=== PATIENT | male | born 1965 | race Caucasian/White ===

== ENCOUNTER → 2017-04-14 | Outpatient (CLI) | payer BC ==
--- NOTE | 2017-04-14 14:38 | XR ---
EXAMINATION TYPE: XR lumbar spine 2 or 3V DATE OF EXAM: 04/14/2017 CLINICAL HISTORY: pain TECHNIQUE: Three views of the lumbar spine are submitted. COMPARISON: None. FINDINGS: There are 5 lumbar type vertebral bodies identified. Severe degenerative disc space narrowing at L4-5 and L5-S1. Grade 1 anterolisthesis L5 on S1 measuring 9 mm. Bilateral spondylolysis at L5. Remaining levels are unremarkable. No bony destructive lesion is identified within the [id number]. IMPRESSION: 1. Anterolisthesis L5 on S1 with bilateral spondylolysis.
== END | disposition home or self-care (01) ==
LOC: RADXRMAIN 13:38
PROVIDERS: ATTEND Family Medicine
DX: M43.06 Spondylolysis, lumbar region (principal)
CPT/HCPCS: 72100

== ENCOUNTER → 2017-06-28 | Outpatient (CLI) | payer BC | END | disposition home or self-care (01) | LOC: RADMRIMAIN 05:56 | PROVIDERS: ATTEND Physician Assistant | DX: Z53.9 Procedure and treatment not carried out, unspecified reason (principal) ==

== ENCOUNTER → 2019-11-04 | Outpatient (CLI) | payer OTHER, BC ==
--- NOTE | 2019-11-04 14:41 | CT ---
EXAMINATION TYPE: CT pelvis w con DATE OF EXAM: 11/04/2019 COMPARISON: NONE HISTORY: 54-year-old male Pelvic pain TECHNIQUE: Contiguous axial scanning of the pelvis following administration of 100 ml Isovue 300 IV c ontrast. Delayed images through the bladder and coronal/sagittal reconstructions performed. CT DLP: 1586 mGycm Automated exposure control for dose reduction was used. FINDINGS: There is low attenuation of the visualized liver suggesting fatty infiltration. Moderate-sized fatty indirect inguinal hernias. There is a fatty lesion involving the superficial aspect of the left iliopsoas which crosses anterior to the left hip. This measures up to 12.4 cm craniocaudal by 5.1 cm wide by 4.0 cm AP. Some strandin g internal densities are present. No suspicious nodularity. Normal appendix. Scattered small retroperitoneal lymph nodes. No lymphadenopathy by CT size criteria. Mild circumferential bladder wall thickening. Pelvic phleboliths. Mild proximal sigmoid diverticular change. Small bilateral scrotal hydroceles. Bones: Mild degenerative change in both hips and SI joints. There are bilateral L5 pars defects with grade 1, nearly grade 2 anterolisthesis at L5-S1 and moderate degenerative disc disease L4-L5 and L5- S1. IMPRESSION: 1. MODERATE-SIZED FAT-CONTAINING BILATERAL INDIRECT INGUINAL HERNIAS. 2. A FAT DENSITY LESION INVOLVING THE SUPERFICIAL ASPECT OF THE LEFT ILIOPSOAS WHICH CROSSES ANTERIOR TO THE LEFT HIP MEASURING 12.4 X 5.1 X 4.0 CM. FINDINGS MAY REPRESENT AN INTRAMUSCULAR LIPOMA. THIS SHOULD BE FOLLOWED CLINICALLY. GIVEN SIZE, ATYPICAL LIPOMATOUS TUMOR OR LOW-GRADE LIPOSARCOMA ARE IN THE DIFFERENTIAL. IMAGING CAN BE REPEATED IF ANY ENLARGING PALPABLE ABNORMALITY IS DETECTED. 3. MILD CIRCUMFERENTIAL BLADDER WALL THICKENING. CORRELATE TO EXCLUDE CYSTITIS. 4. MILD PROXIMAL SIGMOID DIVERTICULOSIS. 5. MODERATE DEGENERATIVE DISC DISEASE L4-L5 AND L5-S1 WITH BILATERAL L5 PARS DEFECTS AND GRADE 1, RAJWINDER RLY GRADE 2 ANTEROLISTHESIS AT L5-S1.
== END | disposition home or self-care (01) ==
LOC: RADCTMAIN 10:44
PROVIDERS: ATTEND Surgery
DX: K40.20 Bilateral inguinal hernia, without obstruction or gangrene, not specified as recurrent (principal); K57.30 Diverticulosis of large intestine without perforation or abscess without bleeding; N32.89 Other specified disorders of bladder
CPT/HCPCS: 72193; Q9967

== ENCOUNTER → 2019-11-11 | Outpatient (CLI) | payer SELFPAY ==
[2019-11-11 11:46] LABS: HCT 41.9 % (39.0-53.0); HGB 13.6 gm/dL (13.0-17.5); MCH 27.4 pg (25.0-35.0); MCHC 32.6 g/dL (31.0-37.0); MCV 84.1 fL (80.0-100.0); Mean Platelet Volume 8.8; Platelet Count 229 k/uL (150-450); RBC 4.98 m/uL (4.30-5.90); RDW 13.4 % (11.5-15.5); WBC 5.1 k/uL (3.8-10.6)
== END | disposition home or self-care (01) ==
LOC: LABWHC1 10:04
PROVIDERS: ATTEND Surgery
DX: K40.20 Bilateral inguinal hernia, without obstruction or gangrene, not specified as recurrent (principal)
CPT/HCPCS: 36415; 85027

== ENCOUNTER 2019-11-19 10:11 | Day surgery (SDC) | payer OTHER, BC ==
[2019-11-17 10:37] VITALS: BMI 36.4
--- NOTE | 2019-11-19 10:04 | P.GSHP ---
History of Present Illness H&P Date: 11/19/19 Chief Complaint: Bilateral inguinal hernia This a 54-year-old male who presents today for laparoscopic robotic repair of bilateral inguinal hernia. Patient developed bilateral inguinal hernias and has pain in the mass in both groins. Past Medical History Past Medical History: Hyperlipidemia, Hypertension Additional Past Medical History / Comment(s): nahid inguinal hernia, seasonal allergies, DDD, states neck, back pain. History of Any Multi-Drug Resistant Organisms: None Reported Additional Past Surgical History / Comment(s): states had "gastro intestinal sx that closed a vein" Past Anesthesia/Blood Transfusion Reactions: No Reported Reaction Smoking Status: Never smoker - Past Family History Mother Family Medical History: No Reported History Medications and Allergies Home Medications Medication Instructions Recorded Confirmed Type Aspirin 325 mg PO DAILY 11/17/19 11/17/19 History Cialifil 1 tab PO DAILY PRN 11/17/19 History Fenofibrate [Lofibra] 160 mg PO DAILY 11/17/19 11/17/19 History HYDROcodone/APAP 7.5-325MG [[place] 1 tab PO Q6HR PRN 11/17/19 11/17/19 History 7.5-325] Lisinopril [Prinivil] 10 mg PO DAILY 11/17/19 11/17/19 History Naproxen Sodium [Aleve] 220 mg PO BID 11/17/19 11/17/19 History [place]-3 Fatty Acids/Fish Oil [Fish 1 each PO DAILY 11/17/19 11/17/19 History Oil 1,000 mg Softgel] Allergies Allergy/AdvReac Type Severity Reaction Status Date / Time No Known Allergies Allergy Verified 11/17/19 10:25 Surgical - Exam - General well developed, well nourished, no distress - Eyes PERRL - ENT normal pinna - Neck no masses - Respiratory normal expansion - Cardiovascular Rhythm: regular - Abdomen Abdomen: soft, non tender Assessment and Plan Assessment: Bilateral inguinal hernias. We'll perform laparoscopic robotic-assisted repair.
[~2019-11-19 10:11] MED LIST: FAMOTIDINE 20 MG/2 ML VIAL IV PRN; HYDROmorphone 0.5 MG/0.5 ML SYRINGE IVP PRN; LACTATED RINGERS 1,000 ML IV SCH; ONDANSETRON 4 MG/2 ML VIAL IVP PRN
[2019-11-19] MEDS ORDERED: ACETAMINOPHEN TAB 500 MG TAB ONE (10:46)
[2019-11-19] MEDS ORDERED: ONDANSETRON 4 MG/2 ML VIAL ONE (10:47)
[2019-11-19] MEDS ORDERED: HEPARIN SODIUM,PORCINE 5,000 UNIT/ML 1 ML VIAL ONE (10:47)
[2019-11-19] MEDS ORDERED: LIDOCAINE 1% (10MG/ML) FOR IV START INTRADERMA ONE (11:02)
[2019-11-19] MEDS ORDERED: DEXAMETHASONE SOD PHOSPHATE 10 MG/ML 1 ML VIAL IV ONE (11:05)
[2019-11-19] MEDS ORDERED: KETOROLAC 15 MG/ML 1 ML VIAL ONE (11:36)
[2019-11-19] MEDS ORDERED: PROPOFOL 10 MG/ML 20 ML VIAL IV ONE (11:36)
[2019-11-19] MEDS ORDERED: LIDOCAINE 1% INJ 10MG/ML (20 ML MDV) ONE (11:36)
[2019-11-19] MEDS ORDERED: SUCCINYLCHOLINE CHLORIDE 100 MG/5 ML SYR IV ONE (11:36)
[2019-11-19] MEDS ORDERED: fentaNYL (PF) 50 MCG/ML 2 ML AMP ONE (11:36)
[2019-11-19] MEDS ORDERED: NEOSTIGMINE 1 MG/ML 10 ML VIAL ONE (11:36)
[2019-11-19] MEDS ORDERED: ROCURONIUM BROMIDE 10 MG/ML 5 ML VIAL IV ONE (11:36)
[2019-11-19] MEDS ORDERED: GLYCOPYRROLATE 0.2 MG/ML 2 ML VIAL ONE (11:36)
[2019-11-19] MEDS ORDERED: MIDAZOLAM 2 MG/2 ML VIAL ONE (11:36)
[2019-11-19] MEDS ORDERED: BUPIVACAINE (PF) 0.5% 30 ML VIAL SQ ONE (11:56)
[2019-11-19] MEDS ORDERED: SODIUM CHLORIDE 0.9% 50 ML with ceFAZolin 2,000 MG IV ONE ×2 (11:57)
[2019-11-19 12:55] VITALS: TEMP 97.2
--- NOTE | 2019-11-19 12:58 | P.OP ---
Date of Procedure: 11/19/19 Preoperative Diagnosis: Bilateral inguinal hernia Postoperative Diagnosis: Bilateral inguinal hernia Procedure(s) Performed: Laparoscopic robotic-assisted repair of bilateral hernia Excision of bilateral cord lipoma Anesthesia: KIET Surgeon: Ismael Dominique Estimated Blood Loss (ml): 10 Pathology: other (Cord lipoma) Condition: stable Disposition: PACU Description of Procedure: The patient's placed on the operating table in the supine position. The patient received general anesthesia. The patient's abdomen was prepped and draped in usual sterile fashion. The skin was anesthetized 1% local Xylocaine at the incision sites. Using an 11 blade a skin incision was made at the umbilicus. The fascia was grasped with a [place] and then the peritoneal cavity was entered with the Veress needle. Position of the Veress needle was confirmed with a positive drop test. After adequate insufflation a 5 mm trocar was placed into the peritoneal cavity. The Laparoscope was placed the peritoneal cavity. And a robotic 8 mm trocar was placed in the right lateral position and then another 8 mm robotic trochars placed in the left lateral position. The original 5 mm trocar was exchanged for a 12 mm trocar. The patient was placed in reverse Trendelenburg and then the patient was docked to the robot. Next the peritoneum over top of the right inguinal hernia was incised and then using blunt and sharp dissection and electrocautery the hernia sac was dissected free from the floor of the inguinal canal. The cord lipoma was dissected free into the pathology The hernia sac was completely reduced into the peritoneal cavity. And then using the Pro car seat upholsterer mesh the hernia was repaired. The peritoneum was then sutured with 20V lock suture. Next the peritoneum over top of the left inguinal hernia was incised and then using blunt and sharp dissection and electrocautery the hernia sac was dissected free from the floor of the inguinal canal. The cord lipoma was dissected free to pathology The hernia sac was completely reduced into the peritoneal cavity. And then using the Pro car seat upholsterer mesh the hernia was repaired. The peritoneum was then sutured with 20V lock suture. The patient was then undocked the robot. The needle was withdrawn from the peritoneal cavity. The umbilical trocar site was closed with 0 Ethibond suture. The skin was closed interrupted 3-0 Monocryl suture. Dermabond dressing was applied. Patient was sent to recovery in stable condition.
[2019-11-19 13:19] VITALS: RESP 16
[2019-11-19] MEDS ORDERED: HYDROcodone/APAP 5-325MG 1 EACH TAB ONE (13:52)
[2019-11-19 14:22] VITALS: BP 114/58; PULSE 69
== END 2019-11-19 14:30 | disposition home or self-care (01) ==
LOC: OR 10:11
PROVIDERS: ATTEND Surgery
DX: K40.20 Bilateral inguinal hernia, without obstruction or gangrene, not specified as recurrent (principal); D17.6 Benign lipomatous neoplasm of spermatic cord; E78.5 Hyperlipidemia, unspecified; I10 Essential (primary) hypertension; J30.2 Other seasonal allergic rhinitis; M51.9 Unspecified thoracic, thoracolumbar and lumbosacral intervertebral disc disorder; K21.9 Gastro-esophageal reflux disease without esophagitis; E66.01 Morbid (severe) obesity due to excess calories; Z87.19 Personal history of other diseases of the digestive system; Z98.890 Other specified postprocedural states; Z79.82 Long term (current) use of aspirin; Z79.899 Other long term (current) drug therapy; Z79.1 Long term (current) use of non-steroidal anti-inflammatories (NSAID); Z68.37 Body mass index [BMI] 37.0-37.9, adult
CPT/HCPCS: 49650; S2900; 88304